=== PATIENT | female | born 1945 | race Caucasian/White ===

== ENCOUNTER 2019-02-28 19:10 | Emergency (ER) | payer MEDICARE ==
[~2019-02-28 19:10] MED LIST: Iopamidol 300 61% 100 ML VIAL FS ONE
[2019-02-28] MEDS ORDERED: Bacitracin Zinc 1 Packet ONE ×2 (19:44)
[2019-02-28 20:11] LABS: #Basophils 0.1 thou/uL (0.0-0.2); #Lymphocytes 1.6 thou/uL (1.20-3.40); %Basophils 0.5 % (0.0-1.0); %Lymphocytes 10.8 % (21.0-51.0); %Monocytes 6.5 % (0.0-10.0); %Neutrophils 82.1 % (42.0-75.0); Mean Corpuscular HGB CONC 34.8 g/dL (32.0-36.0); Platelet Count 384 thou/uL (130-400); RBC Distribution Width 11.8 % (11.5-14.5); Red Blood Cell (RBC) Count 3.87 mill/uL (4.20-5.40); White Blood Cell (WBC) Count 14.6 thou/uL (4.8-10.8)
[2019-02-28 20:17] LABS: INR-International Normal Ratio 1.3; PTT 31.5 SEC (22.9-36.1); Prothrombin Time 15.9 SEC (12.0-14.7)
[2019-02-28 20:23] LABS: Anion Gap 13 mmol/L (10-20); BUN (Urea Nitrogen) 29 mg/dL (9.8-20.1); Calc. Creatinine Clearance 0 mL/min (70-130); Calcium 9.7 mg/dL (7.8-10.44); Carbon Dioxide 24 mmol/L (23-31); Chloride 106 mmol/L (98-107); Estimated GFR-MDRD 57; Glucose 117 mg/dL (83-110); Potassium 3.2 mmol/L (3.5-5.1); Sodium 140 mmol/L (136-145)
[2019-02-28 20:46] LABS: Bilirubin Negative (Negative); Blood, Urine Negative (Negative); Clarity Cloudy (Clear); Glucose, Urine (Dipstick) Negative (Negative); Leukocyte Trace (Negative); Nitrite Positive (Negative); Protein, Urine (Dipstick) 30 mg/dL (Neg-Trace); Specific Gravity, Urine 1.025 (1.005-1.030); Urobilinogen 0.2 mg/dL (0.2-1.0); pH, Urine 5.5 (5.0-9.0)
[2019-02-28 20:47] LABS: Bacteria/HPF 4+ HPF (None Seen); RBC/HPF 0-3 HPF (0-3); Squamous Epithelial 0-3 HPF (0-3)
--- NOTE | 2019-02-28 20:58 | CT ---
CT ABDOMEN AND PELVIS WITH IV CONTRAST: 02/28/19 PROVIDED CLINICAL HISTORY: Left lower extremity pain and bruising status post injury. FINDINGS: The visualized lung bases are free of significant opacity. The liver, spleen, pancreas, kidneys and adrenal glands demonstrate no acute abnormality. Changes of prior cholecystectomy are seen. There is no bowel dilatation, intraperitoneal fat stranding, free intraperitoneal fluid or free intra peritoneal air apparent. There is cutaneous thickening and stranding of the subcutaneous fat of the anterior abdominal wall in the left lower quadrant. Within this stranding is a 4.2 cm circumscribed hyperdense mass compatible with hematoma. There is no evidence for active extravasation. Scattered vascular calcifications are seen. The osseous structures demonstrate no concerning lytic or blastic lesions. Lumbar spine degenerative changes are seen. IMPRESSION: 1. Bruising and hematoma involving the anterior abdominal wall in the left lower quadrant. 2. Chronic findings as above. POS: VIRAJ
== END 2019-02-28 21:19 | disposition home or self-care (01) ==
LOC: SCSER 19:10
DX: S30.1XXA Contusion of abdominal wall, initial encounter (principal); S80.812A Abrasion, left lower leg, initial encounter; D72.829 Elevated white blood cell count, unspecified; I10 Essential (primary) hypertension; E78.5 Hyperlipidemia, unspecified; K21.9 Gastro-esophageal reflux disease without esophagitis; W01.0XXA Fall on same level from slipping, tripping and stumbling without subsequent striking against object, initial encounter; Z79.899 Other long term (current) drug therapy; Z79.01 Long term (current) use of anticoagulants; Z86.711 Personal history of pulmonary embolism
CPT/HCPCS: 74177; 80048; 81003; 81015; 85025; 85610; 85730; 87077; 87086; 87186; Q9967